=== PATIENT | male | born 1960 | race Caucasian/White ===

== ENCOUNTER 2018-06-29 10:49 | Inpatient (IN) | payer BC ==
[~2018-06-29] VITALS: Ht 167.6 cm; Wt 55.3 kg
[2018-06-29 10:58] VITALS: BP 141/90
[2018-06-29] MEDS ORDERED: NS(*) 0.9% 1000 ML BAG 1,000 ML IV PRN (11:31)
[2018-06-29] MEDS ORDERED: ACETAMINOPHEN 325 MG TAB PO PRN (11:35)
[2018-06-29] MEDS ORDERED: ONDANSETRON 4 MG/2 ML VIAL IVP PRN (11:35)
[2018-06-29] MEDS ORDERED: FLUSH 10 ML SYR IVP PRN (11:35)
[2018-06-29] MEDS ORDERED: INSULIN GLARGINE 100 U/ML 3 ML PEN SUBQ ONE (12:00)
[2018-06-29] MEDS ORDERED: METOCLOPRAMIDE 10 MG/2 ML SDV IVP PRN (13:00)
[2018-06-29] MEDS ORDERED: chlorproMAZINE 25 MG TAB PO ONE ×2 (13:10→17:45)
[2018-06-29] MEDS: BACLOFEN 10 MG TAB PO PRN (15:06)
[2018-06-29 15:08] VITALS: BP 139/75
[2018-06-29] MEDS: INSULIN HUM LISPRO 100 UN/ML 3 ML VIAL SUBQ PRN (16:41)
[2018-06-29] MEDS ORDERED: CALCIUM CARBONATE 500 MG CHEW PO PRN (20:05)
--- NOTE | 2018-06-29 20:12 | History & Physical ---
History of Present Illness Chief Complaint hiccups, hyponatremia History of Present Illness 57M presented to PCP for follow up on intractable hiccups and inability to take significant PO. PMHx significant for DM type I. Reports hiccups for 6 days prior to admission, seen at urgent care who prescribed PPI and Zofran with minimal effect. He is unable to take significant PO due to nausea and some reflux/vomiting. He was admitted for control of hiccups and to treat hyponatremia associated with dehydration and insufficient solute intake. History Problems: (1) Hypertension Status: Chronic (2) Type 1 diabetes mellitus Status: Chronic (3) Hypothyroidism Status: Chronic Home Meds Active Scripts Losartan/Hydrochlorothiazide (LOSARTAN-HCTZ 50-12.5 MG TAB) 1 Each Tablet, 1 EACH PO QDAY, #90 TAB 3 Refills Prov:DOM MENDOZA MD 12/29/17 Insulin Aspart 100 Un/Ml Pen (NOVOLOG FLEXPEN) 100 Unit/1 Ml Insuln.pen, 30 UNIT SQ DAILY, #6 BOX 3 Refills Max of 30 units daily per sliding scale. Prov:DOM MENDOZA MD 09/22/17 Atorvastatin Calcium (LIPITOR) 40 Mg Tablet, 1 TAB PO QDAY, #90 TAB 3 Refills Prov:DOM MENDOZA MD 09/21/17 Valsartan/Hydrochlorothiazide (DIOVAN HCT 160-25 MG TABLET) 1 Each Tablet, 1 EACH PO DAILY, #90 TAB 3 Refills Prov:DOM MENDOZA MD 09/21/17 Insulin Glargine,Hum.rec.anlog (Toujeo Solostar) 300 Unit/1 Ml Insuln.pen, 25 UNITS SC QDAY, #3 BOX 3 Refills Increase by 2 units evwery 2 days until fasting glucose is 120 or less. Max of 100 units a day Prov:DOM MENDOZA MD 09/21/17 Metformin Hcl (METFORMIN HCL) 500 Mg Tablet, 1 TAB PO BID, #180 TAB 3 Refills Prov:DOM MENDOZA MD 09/21/17 Levothyroxine Sodium (LEVOTHYROXINE SODIUM) 0.125 Mg Tab, 1 TAB PO QDAY, #90 TAB 3 Refills Prov:DOM MENDOZA MD 09/21/17 Allergies: Coded Allergies: Penicillins (Verified Allergy, Unknown, 03/23/17) EHR CONVERSION Sulfa (Sulfonamide Antibiotics) (Verified Allergy, Unknown, 03/23/17) EHR CONVERSION Patient History: FH: HTN (hypertension) FATHER, Age:91 FH: lymphoma MOTHER, , Age:59 FH: non-Hodgkin's lymphoma BROTHER OR SISTER, , Age:62 High cholesterol FATHER, Age:91 Hypoglycemia BROTHER OR SISTER MS (multiple sclerosis) BROTHER OR SISTER Hx Smoking: Yes Smoking Status: Former Smoker Exposure to Second Hand Smoke?: No When Quit Tobacco?: 1989 Caffeine Intake: Coffee, Soda Caffeine/Cups Per Day: 1/2 cups/day Hx Substance Use Disorder: No Social Drug Use: Never History of IV Drug Use: No Review of Systems All Systems Reviewed/Normal: Yes, Except as Noted Constitutional: No Fever, No Weight Loss Gastrointestinal: Nausea, Vomiting, Other (hiccups) Genitourinary: No Dysuria Musculoskeletal: Pain (abdomen with hiccups) Exam Vital Signs Vital Signs Date Time Temp Pulse Resp B/P (MAP) Pulse Ox O2 Delivery O2 Flow Rate FiO2 06/29/18 15:55 84 Room Air 06/29/18 15:08 67 20 139/75 (96) 06/29/18 10:58 98.2 General Appearance: Alert, Awake, Afebrile (mild distress, appears uncomfortable, frequent hiccups) Neuro: No Gross deficits ENT: Normal Cardiovascular: Normal Rhythm & Peripheral Pulses Respiratory: No Respiratory Distress GI: Abd Soft and Non-Tender Musculoskeletal: No Weakness/Pain Extremities: Soft and Non Tender, Warm, Pulses, Perfused; No Edema Assessment and Plan Problems: (1) Hyponatremia Assessment & Plan: Secondary to poor solute intake, will give NS and monitor. (2) Intractable hiccups Assessment & Plan: Given severity will try Thorazine PRN. (3) Nausea Assessment & Plan: Secondary to hiccups. PRN Reglan but should improve with improvement in hiccups. (4) Type 1 diabetes mellitus Status: Chronic Assessment & Plan: On 45U daily of Trujeo and Novalog with meals. Will give Lantus while inpatient at reduced dose, monitor glucose q6h and cover with SSI level 2. Venous Thromboembolism Antithrombotics Is Pt On Any Antithrombotics?: Yes Exam Sepsis Risk: No Definite Risk LARES AUDREY MOORE DO Jun 29, 2018 19:51
[2018-06-29 20:17] VITALS: BP 124/76
[2018-06-29] MEDS: KCL (*) 20 MEQ/100 ML PREMIX 100 ML IV SCH ×2 (21:05→23:56)
[2018-06-29] MEDS: ATORVASTATIN 40 MG TAB PO SCH (21:05)
[2018-06-29] MEDS: chlorproMAZINE 25 MG TAB PO PRN (22:44)
[2018-06-30 02:18] VITALS: BP 140/86
[2018-06-30] MEDS: BACLOFEN 10 MG TAB PO PRN (02:24)
[2018-06-30 06:02] LABS: PLATELET COUNT, AUTOMATED 66 K/uL (150-450)
[2018-06-30 08:17] VITALS: BP 129/65
[2018-06-30] MEDS: LEVOTHYROXINE SOD 0.125 MG TAB PO SCH (08:22)
[2018-06-30] MEDS: ENOXAPARIN 40 MG/0.4ML SYR SC SCH (08:23)
[2018-06-30] MEDS: INSULIN GLARGINE 100 U/ML 3 ML PEN SUBQ SCH (08:27)
[2018-06-30 09:30] VITALS: BMI 19.7
[2018-06-30] MEDS ORDERED: PANTOPRAZOLE SOD 40 MG IV VIAL IVP ONE (11:00)
[2018-06-30] MEDS ORDERED: IOPAMIDOL 61% 75 ML INFUS BTL 75 ML ONE (11:04)
[2018-06-30] MEDS: GABAPENTIN 100 MG CAP PO SCH ×3 (11:27→22:19)
[2018-06-30] MEDS: GI COCKTAIL 60 ML BTL PO PRN ×2 (11:28→19:24)
--- NOTE | 2018-06-30 12:23 | NUR ---
Pt does not think he will eat much for lunch. Holding insulin at this time. Will recheck blood glucose prior to dinner.
--- NOTE | 2018-06-30 13:07 | NUR ---
Teena, pharmacist, states to non-admin the 1400 dose of gabapentin at this time due to Pt just receiving dose at 1130.
[2018-06-30 14:07] VITALS: BMI 19.7
[2018-06-30 15:21] VITALS: BP 112/68
--- NOTE | 2018-06-30 15:26 | RADIOLOGY IMAGING REPORT ---
FACILITY: [facility] PATIENT NAME: Armin Young : 1960 MR: [id number] V: [id number] EXAM DATE: ORDERING PHYSICIAN: LIZA GARCIA TECHNOLOGIST: Location: [facility] Patient: Armin Young : 1960 Visit/Account:[id number] Date of Sevice: 06/30/2018 CT CHEST W & W/O CON HISTORY: intractable hiccups One of the following dose optimization techniques was utilized in the performance of this exam: Autom ated exposure control; adjustment of the mA and/or kV according to the patient's size; or use of an i terative reconstruction technique. Specific details can be referenced in the facility's radiology C T exam operational policy. EXAMINATION: CT chest with and without IV contrast. TECHNIQUE: Spiral scan was obtained through the chest before and during injection of nonionic iodin ated intravenous contrast. Contrast: 75 mL of IV Isovue-370. COMPARISON STUDIES: none. FINDINGS: Lungs / pleura: There is a reticular nodular "tree-in-bud" parenchymal opacity change in a fairly sy mmetric pattern in the superior segments of both lower lungs. Focal areas of patchy consolidative ch franky in the posterior medial aspects of both lower lungs with subtle areas of "tree-in-bud" opacities identified as well. (Images 50 through 76 series 3 and images 83 through 96 series 3). There are also several areas of pleural-based groundglass opacities measuring between 1.5 to 3 cm in size in the right upper lung paralleling the major fissure and posterior lateral chest wall with subt le "tree-in-bud" opacities within these groundglass opacities.. (Images 41 through 59 series 3). There is mild cylindrical bronchiectasis noted in both lung duron. No appreciable bronchial thicken ing is noted. Lung duron are somewhat hyperexpanded with flattening in hemidiaphragms compatible with air trapping . Mediastinum / allie: No mediastinal mass lesion seen. Heart / pericardium: negative Vessels: negative Musculoskeletal / Body wall: negative Lymph node assessment: There are scattered probable reactive lymph nodes seen in the anterior mediast inum, pretracheal hilar and periaortic regions with the nodes less than 1 cm in size. Lower neck: negative Upper abdomen: Fatty infiltrative changes within the liver. IMPRESSION: 1. Hyperexpanded lung duron compatible with air trapping. No obvious emphysematous changes noted. Mild clinical bronchiectasis noted both lung duron. 2. Bilateral parenchymal "tree-in-bud" opacities primarily in the superior segments of both lower levi ng duron. Additional areas of groundglass opacity in the right upper lung and areas of volume loss and consolidation in both posterior lung bases with minimal areas of "tree-in-bud opacity. Different ial would include both infectious and inflammatory processes. The possibility of aspiration pneumoni tis raised. Recommend clinical correlation appropriate follow-up. Report Dictated By: Mandeep Alatorre MD at 06/30/2018 2:45 PM Report E-Signed By: Mandeep Alatorre MD at 06/30/2018 3:21 PM WSN:[email or web address]
[2018-06-30] MEDS: chlorproMAZINE 25 MG TAB PO PRN ×2 (15:30→22:20)
--- NOTE | 2018-06-30 16:21 | Hospitalist Progress Note ---
Subjective Progress Notes Subjective He developed hiccups again after eating this morning. He doesn't like the Thorazine because it makes him sleepy and have really vivid dreams. Physical Exam Vital Signs Date Time Temp Pulse Resp B/P (MAP) Pulse Ox O2 Delivery O2 Flow Rate FiO2 06/30/18 15:21 99.8 79 20 112/68 (83) 91 Nasal Cannula 2.0 Intake and Output 06/30/18 07:00 Intake Total 600 ml Balance 600 ml Intake Oral 600 ml # Voids 2 General Appearance: Awake, Other (He seems a bit sleepy. He does have frequent hiccups) ENT: Other (T ext auditory canal obstructed with cerumen and one large ball in the canal. R is clear.) Cardiovascular: Regular Rate and Rhythm Respiratory: Clear to Auscultation Result Diagram: 06/30/18 0534 06/30/18 1019 Assessment and Plan Problems: (1) Hyponatremia Assessment & Plan: Secondary to poor solute intake from hiccups. Na improving with IVF at too quick a rate so it was stopped. Repeat Na decreased, but no improving at an appropriate rate. Will follow closely (2) Intractable hiccups Assessment & Plan: Etiology unclear. He does have a large cerumen ball in the R ext auditory canal. Will try irrigation. Will start prophylactic Protonix and do a trial of a GI cocktail to investigate a GERD cause. CT of chest showed bilateral parenchymal "tree-in-bud" opacities primarily in the superior segments of lower lung duron with ground glass opacity in the RUL. He has hypoxia, but hasn't complained of symptoms consistent with a pneumonia. Will discuss results with him. Because of the poor tolerance of Thorazine, and continued hiccups, will start Gabapentin 100mg tid. (3) Nausea Assessment & Plan: Secondary to hiccups. PRN Reglan but should improve with improvement in hiccups. (4) Type 1 diabetes mellitus Status: Chronic Assessment & Plan: On 45U daily of Trujeo and Novalog with meals. Will give Lantus while inpatient at reduced dose, monitor glucose q6h and cover with SSI level 2. Exam Sepsis Risk: No Definite Risk LIZA GARCIA MD Jun 30, 2018 16:21
[2018-06-30] MEDS: KCL (*) 20 MEQ/100 ML PREMIX 100 ML IV SCH ×2 (19:19→22:24)
[2018-06-30] MEDS ORDERED: NS(*) 0.9% 500 ML BAG 500 ML ONE (19:27)
[2018-06-30 20:52] VITALS: BP 123/67
[2018-06-30] MEDS: ATORVASTATIN 40 MG TAB PO SCH (22:19)
[2018-06-30] MEDS: INSULIN HUM LISPRO 100 UN/ML 3 ML VIAL SUBQ PRN (22:21)
[2018-07-01 04:34] VITALS: BP 132/73
[2018-07-01] MEDS: LEVOTHYROXINE SOD 0.125 MG TAB PO SCH (05:27)
[2018-07-01 07:08] VITALS: BP 136/74
[2018-07-01] MEDS: PANTOPRAZOLE SOD 40 MG TABEC PO SCH (09:27)
[2018-07-01] MEDS: GABAPENTIN 100 MG CAP PO SCH ×3 (09:27→22:15)
[2018-07-01] MEDS: INSULIN GLARGINE 100 U/ML 3 ML PEN SUBQ SCH (09:31)
[2018-07-01] MEDS: ENOXAPARIN 40 MG/0.4ML SYR SC SCH (09:33)
[2018-07-01] MEDS ORDERED: INFLUENZA VIRUS VAC 0.5ML SYR IM ONLY ONE (11:35)
[2018-07-01] MEDS: INSULIN HUM LISPRO 100 UN/ML 3 ML VIAL SUBQ PRN (12:21)
[2018-07-01] MEDS: KCL (*) 20 MEQ/100 ML PREMIX 100 ML IV SCH ×2 (12:25→14:43)
[2018-07-01] MEDS: CARBAMIDE PEROX 6.5% OT SOLN RIGHT EAR SCH ×2 (13:27→22:16)
--- NOTE | 2018-07-01 14:16 | Hospitalist Progress Note ---
Subjective Progress Notes Subjective 57M admitted for hyponatremia, dehydration, intractable hiccups. ALMA overnight, hiccups improved minimizing Thorazine. Patient Complains of: Gastrointestinal: No Nausea, No Vomiting Physical Exam Vital Signs Date Time Temp Pulse Resp B/P (MAP) Pulse Ox O2 Delivery O2 Flow Rate FiO2 07/01/18 07:45 95 Room Air 07/01/18 07:08 98.3 66 18 136/74 (94) 1.0 Intake and Output 07/01/18 07:00 Intake Total 560 ml Balance 560 ml Intake Oral 360 ml IV Total 200 ml # Voids 2 General Appearance: Alert, Awake, No Acute Distress Neuro: No Gross deficits ENT: Normal Cardiovascular: Normal Rhythm & Peripheral Pulses Respiratory: No Respiratory Distress GI: Soft and Non-Tender Extremities: Soft and Non Tender, Warm, Pulses, Perfused; No Edema Result Diagram: 06/30/18 0534 07/01/18 0541 Assessment and Plan Problems: (1) Hyponatremia Assessment & Plan: Secondary to poor solute intake from hiccups. Improving at appropriate rate with him beginning PO intake. (2) Intractable hiccups Assessment & Plan: Etiology unclear. He does have a large cerumen ball in the R ext auditory canal will try Debrox and irrigation. Will start prophylactic Protonix and do a trial of a GI cocktail to investigate a GERD cause. CT of chest showed bilateral parenchymal "tree-in-bud" opacities primarily in the superior segments of lower lung duron with ground glass opacity in the RUL. He has hypoxia, but hasn't complained of symptoms consistent with a pneumonia. Because of the poor tolerance of Thorazine, and continued hiccups, will start Gabapentin 100mg tid. He does report some dysphagia and reflux which started around the same time. (3) Odynophagia Assessment & Plan: Reports new onset pain, difficulty swallowing, reflux around time of hiccups starting. Given age would recommend EGD to evaluate for mass or other pathology, this could be done outpatient. If negative would recommend gas tric emptying study to evaluate for diabetic gastroparesis as cause. (4) Nausea Assessment & Plan: Improved, Secondary to hiccups. PRN Reglan. (5) Type 1 diabetes mellitus Status: Chronic Assessment & Plan: On 45U daily of Trujeo and Novalog with meals. Will give Lantus while inpatient at reduced dose, monitor glucose q6h and cover with SSI level 2. Exam Sepsis Risk: No Definite Risk LARES AUDREY MOORE DO Jul 01, 2018 14:16
[2018-07-01 14:46] VITALS: BP 127/75
[2018-07-01 20:05] VITALS: BP 134/80
[2018-07-01] MEDS: ATORVASTATIN 40 MG TAB PO SCH (22:15)
[2018-07-02] VITALS (7 sets, daily range): BP systolic 113–146; BP diastolic 71–85; Ht 167.6 cm; Wt 55.3 kg
[2018-07-02] MEDS: LEVOTHYROXINE SOD 0.125 MG TAB PO SCH (06:00)
[2018-07-02] MEDS ORDERED: D5NS(*) 1000 ML BAG 1,000 ML IV PRN (08:40)
[2018-07-02] MEDS: ENOXAPARIN 40 MG/0.4ML SYR SC SCH (08:53)
[2018-07-02 09:00] LABS: PLATELET COUNT, AUTOMATED 156 K/uL (150-450)
[2018-07-02] MEDS ORDERED: BARIUM SULFATE 176 GM BTL PO ONE (09:02)
[2018-07-02] MEDS ORDERED: BARIUM SULFATE 340 GM POWD ONE (09:02)
--- NOTE | 2018-07-02 09:37 | Medical Nutrition Therapy ---
Nutrition Anthropometrics Height (Inches): 66.00 Height (Calculated Centimeters: 167.949327 Weight (Pounds): 122 Weight (Calculated Kilograms): 55.338 Vikash Nutrition Score: Probably Inadequate Vikash Nutrition Risk Score: 19 Dietary Referral Nutrition Risk Factors: Diff. Swallowing Nutrition Risk Comment: Uncntrolled Hiccups Physical Findings Physical Appearance: Skin Appearance Skin Appearance: Edema Edema Location Modifier: Edema Location: Type of Edema: Degree of Edema: Gastrointestinal Symptoms GI Symtoms: Appetite Changes, Change in Bowel Pattern Tube Present: Bowel Sounds: Recent Bowel Pattern: Constipated, No Bowel Movement Stool Characteristics: Nutritional Diagnosis Nutritional Risk Acuity 2: Swallowing Problem Nutritional Risk Acuity 3: Fair Appetite Nutritional Risk Acuity 4: Modified Diet Past Medical History: Hypertension, hyperthyroidism, nausea, DMT1. Nutritional Acuity: 2-Moderate Nutrition Diagnosis: Swallowing Difficulties Nutrition Etiology: Physiological Causes Nutrition Problem/Etiology/Sym: Swallowing difficulties related to physiological causes as evidenced by intractable hiccups and pain when swallowing. Energy Requirement: 1861 (m st joer X 1.1 X1.2) Protein Requirement: 46 (0.8 g protein/kg) Fluid Requirement: 1861 (1mL/1kcal) Nutrition Intervention: Incr diet as tolerated, Check glucose Diet Comment To RSA: Pt is consuming on average 75% of meals.Pt is currently on both ULICES and Diabetic diet, would recommend continuing diabetic diet. Nutrition Monitoring & Eval Nutrition Goals: Eat 50-100% Meal, Drink > 1500 cc/day Nutrition Follow-Up: Fair Intake RD Patient Assessment Time: [address] Assessment Type: RD Assessment Patient Nutrition Acuity: 2-Moderate Follow Up Date: Jul 02, 2018 Nutritional Comment: Pt admitted to the hospital for uncontrolled hiccups and low oral intake. Pt has past medical hx of hpertension, hyperthyroidism, DMT1, nausea. Pt has hgih albumin, random glucose, sodium, and potassium labs. Pt is on enoxapanin drug (anti-coagulant). Pt is currently on both ULICES and Diabetic diet, would recommend continuing diabetic diet. -JJ 07/02 NPO day 1. Pt reports pain when swallowing. May need dysphagia diet paired with ADA diet when oral intake is tolerated. MD note pt status is improving. Pt taking 2 types of insulin and enoxaparin. Oral intake of food has varied from 0-100% of meals, usually around 75% intake. Whole blood glucose has varied from 64-281. AST is elevated at 51 and ALT is elevated at 93. Montior for progression of diet. -NICHELLE BRIDGES Jul 02, 2018 09:37
[2018-07-02] MEDS: PANTOPRAZOLE SOD 40 MG TABEC PO SCH (10:41)
[2018-07-02] MEDS: GABAPENTIN 100 MG CAP PO SCH ×3 (10:41→20:44)
[2018-07-02] MEDS: LOSARTAN POTASSIUM 50 MG TAB PO SCH (10:41)
[2018-07-02] MEDS: CARBAMIDE PEROX 6.5% OT SOLN RIGHT EAR SCH (10:42)
[2018-07-02] MEDS: INSULIN GLARGINE 100 U/ML 3 ML PEN SUBQ SCH (10:43)
--- NOTE | 2018-07-02 12:09 | Hospitalist Progress Note ---
Subjective Progress Notes Subjective He was admitted with intractable hiccups and hyponatremia. He reports the hiccups have resolved at this time and he is able to eat better. He is having some issues with hypoglycemia in the morning. Patient Complains of: Cardiovascular: No: Chest Pain Respiratory: No: Shortness of Breath Physical Exam Vital Signs Date Time Temp Pulse Resp B/P (MAP) Pulse Ox O2 Delivery O2 Flow Rate FiO2 07/02/18 10:40 97.9 58 16 144/81 (102) 95 Room Air 07/01/18 07:08 1.0 Intake and Output 07/02/18 07:00 Intake Total 436 ml Balance 436 ml Intake Oral 236 ml IV Total 200 ml # Voids 3 # Bowel Movements 1 General Appearance: Alert, Awake, No Acute Distress, Afebrile Neuro: No Gross deficits Cardiovascular: Regular Rate and Rhythm Respiratory: No Respiratory Distress, Clear to Auscultation GI: Soft and Non-Tender Psych: Alert & Oriented X3, Appropriate Mood & Affect Result Diagram: 07/02/18 0850 07/02/18 0850 Assessment and Plan Problems: (1) Hyponatremia Status: Acute Assessment & Plan: Secondary to poor solute intake from hiccups. Improving at appropriate rate with him beginning PO intake. (2) Intractable hiccups Status: Acute Assessment & Plan: Etiology unclear. He does have a large cerumen ball in the R ext auditory canal will try Debrox and irrigation. Will start prophylactic Protonix and do a trial of a GI cocktail to investigate a GERD cause. CT of chest showed bilateral parenchymal "tree-in-bud" opacities primarily in the superior segments of lower lung duron with ground glass opacity in the RUL. He has hypoxia, but hasn't complained of symptoms consistent with a pneumonia. Because of the poor tolerance of Thorazine, and continued hiccups, will start Gabapentin 100mg tid. He does report some dysphagia and reflux which started around the same time. (3) Odynophagia Assessment & Plan: Reports new onset pain, difficulty swallowing, reflux around time of hiccups starting. Given age would recommend EGD to evaluate for mass or other pathology, this could be done outpatient. If negative would recommend jo mimi emptying study to evaluate for diabetic gastroparesis as cause. He is getting upper GI series today. (4) Nausea Assessment & Plan: Improved, Secondary to hiccups. PRN Reglan. (5) Type 1 diabetes mellitus Status: Chronic Assessment & Plan: On 45U daily of Trujeo and Novalog with meals. Will give Lantus while inpatient at reduced dose, monitor glucose q6h and cover with SSI level 2. He has been having low glucoses in the morning. He has further been reduced on Lantus. He was started on D5NS this morning while NPO. Exam Sepsis Risk: No Definite Risk DEREK MCCONNELL Jul 02, 2018 12:09
--- NOTE | 2018-07-02 13:53 | RADIOLOGY IMAGING REPORT ---
[place] [facility] [place] NAME: Armin Young : 1960 MR: [id number] V: [id number] EXAM DATE: ORDERING PHYSICIAN: AUDREY MOORE TECHNOLOGIST: Location: [facility] Patient: Armin Young : 1960 Visit/Account:[id number] Date of Sevice: 07/02/2018 Double contrast upper GI, small bowel study. HISTORY: Dysphagia. COMPARISON: None. The patient swallowed thin and thick barium without difficulty. The esophagus is unremarkable. No hia art hernia or gastroesophageal reflux. The stomach, pyloric channel, and the duodenum are unremarkabl e. The proximal jejunum is unremarkable. The jejunum and ileum are normally positioned within the ab dominal cavity. The small bowel mucosal pattern is unremarkable. The terminal ileum is unremarkable . Gastric cecal transit time is 30 minutes which is within normal limits. FLUOROSCOPY TIME: 0.8 minutes. DOSE: DAP was 264.09 microGy*m2. IMPRESSION: Normal upper GI and small bowel follow-through. Report Dictated By: Tacho Bonilla MD at 07/02/2018 1:22 PM Report E-Signed By: Tacho Bonilla MD at 07/02/2018 1:28 PM WSN:[email or web address]
--- NOTE | 2018-07-02 16:31 | CONSULTATION ---
EVENT DATE: July 02, 2018 CONSULTING PHYSICIAN Patrick Field MD REASON FOR CONSULTATION 1. Right cerumen impaction. 2. Hiccups. REQUESTING PHYSICIAN This is a consultation note at the request of the Hospitalist Service. HISTORY OF PRESENT ILLNESS This is a 57-year-old man who has diabetes mellitus type 1 and severe hiccups for the past 9 days. These were so severe that he was unable to tolerate p.o. He was admitted for IV hydration and treatment of his hiccups. These seem to have responded somewhat to Thorazine. However, he is noted on examination to have right cerumen impaction, and there is concern that this is perhaps the etiology of his hiccups. There have been unsuccessful attempts at irrigating his right ear on the floor. PAST MEDICAL HISTORY 1. Hypertension. 2. Type 1 diabetes. 3. Hypothyroidism. ALLERGIES PENICILLIN, SULFA. FAMILY HISTORY Father with hypertension. Mother and sibling with lymphoma. Father with hypercholesterolemia. Sibling with hypoglycemia. Sibling with multiple sclerosis. SOCIAL HISTORY The patient quit tobacco in 1989. REVIEW OF SYSTEMS As above. MEDICATIONS 1. Losartan. 2. Lantus. 3. Pantoprazole. 4. Gabapentin. 5. Lovenox. 6. Synthroid. 7. Lipitor. 8. Thorazine. 9. Reglan. PHYSICAL EXAMINATION VITAL SIGNS: Temperature 97.9, pulse 58, respiratory rate 16, blood pressure 144/81, pulse ox 95% on room air. GENERAL: Thin. No apparent distress. HEAD AND FACE: Normocephalic, atraumatic. No gross lesions or scars. EARS: Bilateral external ears clear. Left canal and tympanic membrane clear. Right cerumen impaction. Tympanic membrane clear. PROCEDURE The right ear was cleared of impacted cerumen under the microscope with instruments. ASSESSMENT 1. Right cerumen impaction. 2. Hiccups. PLAN The right ear was cleared of impacted cerumen under the microscope. Please do not hesitate to call me with further questions or concerns. GEORGINA
[2018-07-02] MEDS: INSULIN HUM LISPRO 100 UN/ML 3 ML VIAL SUBQ PRN ×2 (17:18→20:45)
[2018-07-02] MEDS: ATORVASTATIN 40 MG TAB PO SCH (20:44)
[2018-07-03 03:46] VITALS: BP 126/76
[2018-07-03] MEDS: LEVOTHYROXINE SOD 0.125 MG TAB PO SCH (05:56)
[2018-07-03 07:06] VITALS: BP 138/79
[2018-07-03] MEDS: PANTOPRAZOLE SOD 40 MG TABEC PO SCH (09:01)
[2018-07-03] MEDS: GABAPENTIN 100 MG CAP PO SCH (09:01)
[2018-07-03] MEDS: LOSARTAN POTASSIUM 50 MG TAB PO SCH (09:02)
[2018-07-03] MEDS: INSULIN GLARGINE 100 U/ML 3 ML PEN SUBQ SCH (09:02)
[2018-07-03] MEDS: ENOXAPARIN 40 MG/0.4ML SYR SC SCH (09:06)
[2018-07-03] MEDS ORDERED: INSU100I30 SUBQ (10:29)
[2018-07-03] MEDS ORDERED: GABA-547 PO (10:29)
[2018-07-03] MEDS ORDERED: LOSA50TA80 PO (10:29)
--- NOTE | 2018-07-03 10:31 | Medical Nutrition Therapy ---
Nutrition Anthropometrics Height (Inches): 66.00 Height (Calculated Centimeters: 167.066890 Weight (Pounds): 122 Weight (Calculated Kilograms): 55.338 Vikash Nutrition Score: Probably Inadequate Vikash Nutrition Risk Score: 19 Dietary Referral Nutrition Risk Factors: Diff. Swallowing Nutrition Risk Comment: Uncntrolled Hiccups Physical Findings Physical Appearance: Skin Appearance Skin Appearance: Edema Edema Location Modifier: Edema Location: Type of Edema: Degree of Edema: Gastrointestinal Symptoms GI Symtoms: Constipation Tube Present: Bowel Sounds: Recent Bowel Pattern: Constipated, No Bowel Movement Stool Characteristics: Nutritional Diagnosis Nutritional Risk Acuity 2: Swallowing Problem Nutritional Risk Acuity 3: Fair Appetite Nutritional Risk Acuity 4: Modified Diet Past Medical History: Hypertension, hyperthyroidism, nausea, DMT1. Nutritional Acuity: 2-Moderate Nutrition Diagnosis: Swallowing Difficulties Nutrition Etiology: Physiological Causes Nutrition Problem/Etiology/Sym: Swallowing difficulties related to physiological causes as evidenced by intractable hiccups and pain when swallowing. Energy Requirement: 1861 (m st joer X 1.1 X1.2) Protein Requirement: 46 (0.8 g protein/kg) Fluid Requirement: 1861 (1mL/1kcal) Nutrition Intervention: Incr diet as tolerated, Check glucose Diet Comment To RSA: Offer soft easy to swallow foods if pt prefers Nutrition Monitoring & Eval Nutrition Goals: Eat 50-100% Meal, Drink > 2 liters/day Nutritional Goals Comment: Pt no longer NPO, on ADA diet RD Patient Assessment Time: [address] Assessment Type: RD Re-Assessment Patient Nutrition Acuity: 2-Moderate Follow Up Date: Jul 05, 2018 Nutritional Comment: Pt admitted to the hospital for uncontrolled hiccups and low oral intake. Pt has past medical hx of hpertension, hyperthyroidism, DMT1, nausea. Pt has hgih albumin, random glucose, sodium, and potassium labs. Pt is on enoxapanin drug (anti-coagulant). Pt is currently on both ULICES and Diabetic diet, would recommend continuing diabetic diet. -JJ 07/02 NPO day 1. Pt reports pain when swallowing. May need dysphagia diet paired with ADA diet when oral intake is tolerated. MD note pt status is improving. Pt taking 2 types of insulin and enoxaparin. Oral intake of food has varied from 0-100% of meals, usually around 75% intake. Whole blood glucose has varied from 64-281. AST is elevated at 51 and ALT is elevated at 93. Montior for progression of diet. -LAUREL 07/03 Pt no longer NPO, now on ADA diet with 100% intakes. Will offer soft easy to swallow foods if pt prefers. Pt blood glucose has ranged form 64-267. Monitor blood glucose and intakes. -NICHELLE BRIDGES Jul 03, 2018 10:31
--- NOTE | 2018-07-03 10:36 | Hospitalist Depart ---
Discharge Summary Reason for Hosp/Final Diag: (1) Hyponatremia Status: Acute Hospital Course & Plan: Resolved with IV fluids. (2) Intractable hiccups Status: Acute Hospital Course & Plan: He did not tolerate a trial of Thorazine, but his symptoms did resolve with gabapentin. (3) Odynophagia Hospital Course & Plan: An upper gi with small bowel follow through was normal. Consideration may be given to upper endoscopy if symptoms recur. (4) Type 1 diabetes mellitus Status: Chronic Hospital Course & Plan: He did develop hypoglycemia during this admission. His Lantus dose has been decreased. (5) Cerumen impaction Hospital Course & Plan: Dr. Field did clean out the right auditory canal. Departure Latest Vital Signs Vital Signs 07/01/18 07/03/18 07/03/18 07:08 07:06 07:30 Temp 98.4 Pulse 68 Resp 16 B/P (MAP) 138/79 (98) Pulse Ox 90 O2 Delivery Room Air O2 Flow Rate 1.0 Weight (Pounds): 122 Result Diagram: 07/02/18 0850 07/02/18 0850 Condition: Improved Discharge: Home, Self Care Follow-Up Labs: Finger Sticks Discharge Instructions Home Meds Active Scripts Losartan Potassium (LOSARTAN POTASSIUM) 50 Mg Tablet, 50 MG PO QDAY, #30 TAB Prov:YUDITH YUEN DO 07/03/18 Gabapentin (GABAPENTIN) 100 Mg Capsule, 100 MG PO TID, #90 CAPSULE Prov:YUDITH YUEN DO 07/03/18 Insulin Glargine 100 Un/Ml Pen (LANTUS SOLOSTAR PEN) 100 Unit/1 Ml Insuln.pen, 12 UNIT SUBQ QDAY, #10 ML Prov:YUDITH YUEN DO 07/03/18 Insulin Aspart 100 Un/Ml Pen (NOVOLOG FLEXPEN) 100 Unit/1 Ml Insuln.pen, 30 UNIT SQ DAILY, #6 BOX 3 Refills Max of 30 units daily per sliding scale. Prov:DOM MENDOZA MD 09/22/17 Atorvastatin Calcium (LIPITOR) 40 Mg Tablet, 1 TAB PO QDAY, #90 TAB 3 Refills Prov:DOM MENDOZA MD 09/21/17 Levothyroxine Sodium (LEVOTHYROXINE SODIUM) 0.125 Mg Tab, 1 TAB PO QDAY, #90 TAB 3 Refills Prov:DOM MENDOZA MD 09/21/17 Discontinued Scripts Losartan/Hydrochlorothiazide (LOSARTAN-HCTZ 50-12.5 MG TAB) 1 Each Tablet, 1 EACH PO QDAY, #90 TAB 3 Refills Prov:DOM MENDOZA MD 12/29/17 Insulin Glargine,Hum.rec.anlog ([place] Solostar) 300 Unit/1 Ml Insuln.pen, 25 UNITS SC QDAY, #3 BOX 3 Refills Increase by 2 units evwery 2 days until fasting glucose is 120 or less. Max of 100 units a day Prov:DOM MENDOZA MD 09/21/17 Metformin Hcl (METFORMIN HCL) 500 Mg Tablet, 1 TAB PO BID, #180 TAB 3 Refills Prov:DOM MENDOZA MD 09/21/17 Valsartan/Hydrochlorothiazide (DIOVAN HCT 160-25 MG TABLET) 1 Each Tablet, 1 EACH PO DAILY, #90 TAB 3 Refills Prov:DOM MENDOZA MD 09/21/17 Diet: Diabetic Activity: As Tolerated Special Instructions: Please follow-up with your Primary Care Physician within a week. Copies to: DOM MENDOZA MD ; Venous Thromboembolism Antithrombotics Is Pt On Any Antithrombotics?: Yes YUDITH YUEN DO Jul 03, 2018 10:36
== END 2018-07-03 11:35 | disposition home or self-care (01) | DRG 641 ==
LOC: MED 10:49
PROVIDERS: ADMIT Internal Medicine; ATTEND Internal Medicine
PROC: 09C37ZZ Extirpation of Matter from Right External Auditory Canal, Via Natural or Artificial Opening (ICD-10-PCS; principal; 2018-07-02)
DX: E87.1 Hypo-osmolality and hyponatremia (principal); R06.6 Hiccough; E10.65 Type 1 diabetes mellitus with hyperglycemia; H61.21 Impacted cerumen, right ear; E86.0 Dehydration; I10 Essential (primary) hypertension; K21.9 Gastro-esophageal reflux disease without esophagitis; T43.3X5A Adverse effect of phenothiazine antipsychotics and neuroleptics, initial encounter; R09.02 Hypoxemia; R13.10 Dysphagia, unspecified; E03.9 Hypothyroidism, unspecified; Y92.230 Patient room in hospital as the place of occurrence of the external cause; Z79.4 Long term (current) use of insulin; Z88.0 Allergy status to penicillin; Z88.2 Allergy status to sulfonamides; Z87.891 Personal history of nicotine dependence
CPT/HCPCS: 36415; 36416; 71270; 74245; 82040; 82247; 82310; 82374; 82435; 82565; 82947; 82948; 83735; 83935; 84075; 84132; 84155; 84295; 84300; 84450; 84460; 84520; 85025; C9113; J1650; J1815; J3480; J7030; J7040; J7042; Q0161; Q9967

== ENCOUNTER → 2018-06-29 | Outpatient (CLI) | payer BC ==
[~2018-06-29] VITALS: Ht 167.6 cm; Wt 55.3 kg
[~2018-06-29] MED LIST: ATOR40TA24 PO; INSU100I35 SQ; INSU100V24 SQ; INSU300I SC; LANI SUBQ; LEV125 PO; LEVO-3 PO; LOSA-51 PO; METF-450 PO; METF-452 PO; SIMV-54 PO; SIMV10TA98 PO; VALS1TAB67 PO; VALS1TAB72 PO
[2018-06-29 08:56] LABS: PLATELET COUNT, AUTOMATED 97 K/uL (150-450)
[2018-06-29 09:09] LABS: LDL CHOLESTEROL 23 mg/dl
--- NOTE | 2018-06-29 09:52 | RADIOLOGY IMAGING REPORT ---
FACILITY: [facility] PATIENT NAME: Armin Young : 1960 MR: [id number] V: [id number] EXAM DATE: ORDERING PHYSICIAN: DOM EMNDOZA TECHNOLOGIST: Location: [facility] [place] Patient: Armin Young : 1960 Visit/Account:[id number] Date of Sevice: 06/29/2018 CHEST PA LAT History: Shortness of breath x1 week. FINDINGS: Comparison studies: None. Tubes and Lines: None. Lungs and pleura: There is pulmonary hyperinflation with very mildly coarsened interstitium. No fo ja consolidation noted. Nipple shadows are noted bilaterally. Mediastinum: normal. Cardiac silhouette: normal . Osseous structures: Unremarkable for age . IMPRESSION: COPD. Correlate with smoking history. Consider chest CT follow up to assess severity. Report Dictated By: Anton Murphy MD at 06/29/2018 9:43 AM Report E-Signed By: Anton Murphy MD at 06/29/2018 9:46 AM WSN:[email or web address]
--- NOTE | 2018-06-29 09:55 | EKG ---
FACILITY: [facility] [place] PATIENT NAME: WILDER STONE : [id number] MR: [id number] V: [id number] EXAM DATE: ORDERING PHYSICIAN: DOM MENDOZA TECHNOLOGIST: PATRICIA Test Reason : Blood Pressure : / mmHG Vent. Rate : 079 BPM Atrial Rate : 079 BPM P-R Int : 114 ms QRS Dur : 092 ms QT Int : 410 ms P-R-T Axes : 081 090 081 degrees QTc Int : 470 ms Normal sinus rhythm Right atrial enlargement Borderline ECG No previous ECGs available Referred By: REJI Confirmed By:
[2018-06-29 10:58] VITALS: BP 141/90
== END ==
LOC: LAB 08:28
PROVIDERS: ATTEND Emergency Medicine
DX: J44.9 Chronic obstructive pulmonary disease, unspecified (principal); I10 Essential (primary) hypertension; E10.9 Type 1 diabetes mellitus without complications; E78.5 Hyperlipidemia, unspecified; E03.9 Hypothyroidism, unspecified; R06.6 Hiccough
CPT/HCPCS: 36415; 71046; 82040; 82247; 82310; 82374; 82435; 82465; 82565; 82607; 82947; 83036; 83718; 84075; 84132; 84155; 84295; 84443; 84450; 84460; 84478; 84520; 85025; 86140